=== PATIENT | male | born 1985 | race Caucasian/White ===

== ENCOUNTER 2017-05-21 12:42 | Emergency (ER) | payer SELFPAY ==
[2017-05-21 13:00] VITALS: BP 132/93
--- NOTE | 2017-05-21 14:01 | UC ---
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 Denies numbness and tingling, movement intact - History of Current Complaint Chief Complaint: UCUpperExtremity Stated Complaint: LEFT ARM SWELLING Time Seen by Provider: 05/21/17 13:42 Hx Obtained From: Patient Onset/Duration: Lasting Weeks Severity Initially: Moderate Severity Currently: Moderate Character: Aching, Stiffness Aggravating Factor(s): Movement Alleviating Factor(s): Nothing Associated Signs And Symptoms: Positive: Swelling. Negative: Numbness/Tingling - Allergies/Home Medications Allergies/Adverse Reactions: Allergies Allergy/AdvReac Type Severity Reaction Status Date / Time No Known Allergies Allergy Verified 05/21/17 12:55 PMH/Surg Hx/FS Hx/Imm Hx Previously Healthy: No - Surgical History Surgical History: None - Social History Alcohol Use: Occasionally Substance Use Type: None Smoking Status (MU): Former Smoker Have You Smoked in the Last Year: Yes Household Exposure Type: Cigarettes Review of Systems Constitutional: Negative Skin: Negative Eyes: Negative ENT: Negative Respiratory: Negative Cardiovascular: Negative Gastrointestinal: Negative Genitourinary: Negative Motor: Negative Neurovascular: Negative Musculoskeletal: Other: - left forearm pain and swelling Neurological: Negative Psychological: Negative All Other Systems Reviewed And Are Negative: Yes Physical Exam Triage Information Reviewed: Yes Vital Signs: Initial Vital Signs Temp 35.6 C 05/21/17 12:55 Pulse 68 05/21/17 12:55 Resp 20 05/21/17 12:55 BP 132/93 05/21/17 12:55 Pulse Ox 100 05/21/17 12:55 Vital Signs Reviewed: Yes Eye Exam: Normal ENT Exam: Normal Dental Exam: Normal Neck exam: Normal Neck: Positive: 1 Respiratory Exam: Normal Cardiovascular Exam: Normal Abdominal Exam: Normal Musculoskeletal Exam: Normal Musculoskeletal: Positive: ROM Intact, Other: - mild deformity and bony tenderness on left distal radius and mild stiffness on pronation and supination on left forearm, no numbness and tingling Neurological Exam: Normal Psychological Exam: Normal Skin Exam: Normal Upper Extremity Course/Dx - Course Course Of Treatment: XR left forearm neg for acute fx but there is faint old healing fx on distal radius and current sx . Wrist splint, RICE, NSAIDS. F/u with ortho if sx persist - Differential Dx/Diagnosis Provider Diagnoses: Left wrist sprain Discharge - Discharge Plan Condition: Stable Disposition: HOME Patient Education Materials: Wrist Sprain (ED) Referrals: Derrick Mohr MD [Primary Care Provider] - Additional Instructions: as tolerated
--- NOTE | 2017-05-21 14:14 | RAD ---
HISTORY: Left arm swelling, remote injury COMPARISONS: March 01, 2009 VIEWS: 2, Frontal and lateral views of the left hand FINDINGS: BONE DENSITY: Normal. BONES: There is no displaced fracture. JOINTS: There is no arthropathy. ALIGNMENT: There is no dislocation. SOFT TISSUES: Unremarkable. OTHER FINDINGS: None. IMPRESSION: NO ACUTE OSSEOUS INJURY. IF SYMPTOMS PERSIST, RECOMMEND REPEAT IMAGING.
--- NOTE | 2017-05-21 14:16 | RAD ---
Indication: LEFT forearm swelling; injury in November 2016. Comparison: No relevant prior exams available on the [facility] [place] for comparison. Technique: AP and lateral views LEFT radius and ulna. REPORT AND IMPRESSION: Negative for fracture or articular malalignment. No significant arthropathic change evident. Suggestion of mild nonfocal soft tissue swelling distally.
== END 2017-05-21 14:45 | disposition home or self-care (01) ==
LOC: UCEAST 12:42
DX: S63.302A Traumatic rupture of unspecified ligament of left wrist, initial encounter (principal); X50.0XXA Overexertion from strenuous movement or load, initial encounter; Y93.G3 Activity, cooking and baking; Y92.511 Restaurant or cafe as the place of occurrence of the external cause; Y99.0 Civilian activity done for income or pay; Z72.89 Other problems related to lifestyle; Z87.891 Personal history of nicotine dependence
CPT/HCPCS: 99202; G0463